=== PATIENT | male | born 1985 | race American Indian/Alaskan Native ===

== ENCOUNTER 2022-03-14 18:00 | Emergency (ER) | payer BC ==
[2022-03-14 20:05] LABS: Basophils % (Auto) 0.3 % (0.0-1.8); Hematocrit 44.9 % (35.5-45.6); Hemoglobin 14.8 gm/dl (11.8-15.2); Lymphocytes # (Auto) 1.6 K/mm3 (1.2-5.4); Lymphocytes % (Auto) 23.2 % (13.4-35.0); Mean Corpuscular HGB Conc 33 % (32-34); Mean Corpuscular Volume 94 fl (84-94); Monocytes # (Auto) 0.6 K/mm3 (0.0-0.8); Monocytes % (Auto) 9.2 % (0.0-7.3); Platelet Count 148 K/mm3 (140-440); Red Cell Distribution Width 13.9 % (13.2-15.2)
[2022-03-14 20:23] LABS: Alanine Aminotransferase 13 units/L (7-56); Albumin 4.9 g/dL (3.9-5); BUN/Creatinine Ratio 14; Blood Urea Nitrogen 11 mg/dL (9-20); Calcium 9.9 mg/dL (8.4-10.2); Hemolysis Index 20
[2022-03-14 23:51] LABS: Color,Urine Yellow (Yellow)
[2022-03-14 23:53] LABS: Mucus,Urine 3+ /HPF
--- NOTE | 2022-03-15 00:02 | Emergency Department Report ---
ED General Adult HPI - General Chief complaint: Nausea/Vomiting/Diarrhea Stated complaint: CANT KEEP ANYTHING DOWN Time Seen by Provider: 03/14/22 23:49 Source: patient, RN notes reviewed Mode of arrival: Ambulatory Limitations: No Limitations - History of Present Illness Initial comments: The patient was evaluated in the emergency department for symptoms described in the history of present illness. He/she was evaluated in the context of the global COVID-19 pandemic, which necessitated consideration that the patient might be at risk for infection with the virus that causes COVID-19. Institutional protocols and algorithms that pertain to the evaluation of patients at risk for COVID-19 are in a state of rapid change based on information released by regulatory bodies including the CDC and federal and state organizations. These policies and algorithms were followed during the patient's care in the emergency department. Please note that these policies, procedures and recommendations changed on a rapid basis. This patient is a pleasant and cooperative 36-year-old gentleman who presents to the department today with complaints of resolved painless nausea and vomiting. The patient went out last night, and drank a number of fireball whiskey shots. He also smokes cigarettes. He does not smoke marijuana. His symptoms are now resolved. He denies all active complaints at this time. He does not have testicular pain, or urinary symptoms. He is currently drinking apple juice. -: Sudden Severity scale (0 -10): 8 Consistency: now resolved Improves with: none Worsens with: none Associated Symptoms: denies other symptoms - Related Data Previous Rx's Medication Instructions Recorded Last Taken Type Ondansetron [Zofran Odt] 4 mg PO Q8HR PRN #20 tab.rapdis 03/15/22 Unknown Rx Allergies Allergy/AdvReac Type Severity Reaction Status Date / Time No Known Allergies Allergy Unverified 03/14/22 19:09 ED Review of Systems ROS: Stated complaint: CANT KEEP ANYTHING DOWN Other details as noted in HPI Comment: All other systems reviewed and negative Gastrointestinal: nausea, vomiting. denies: abdominal pain Genitourinary: denies: urgency, dysuria, frequency, testicular pain, testicular mass ED Past Medical Hx - Past Medical History Previous Medical History?: No - Surgical History Past Surgical History?: No - Medications Home Medications: Home Medications Medication Instructions Recorded Confirmed Last Taken Type Ondansetron [Zofran Odt] 4 mg PO Q8HR PRN #20 tab.rapdis 03/15/22 Unknown Rx ED Physical Exam - General Limitations: No Limitations General appearance: alert, in no apparent distress - Head Head exam: Present: atraumatic, normocephalic - Eye Eye exam: Present: normal appearance, EOMI. Absent: nystagmus - ENT ENT exam: Present: normal exam, normal orophraynx, mucous membranes moist, normal external ear exam - Neck Neck exam: Present: normal inspection, full ROM. Absent: tenderness, meningismus - Respiratory Respiratory exam: Present: normal lung sounds bilaterally. Absent: respiratory distress, wheezes, rales, rhonchi, stridor, decreased breath sounds - Cardiovascular Cardiovascular Exam: Present: regular rate, normal rhythm, normal heart sounds. Absent: bradycardia, tachycardia, irregular rhythm, systolic murmur, diastolic murmur, rubs, gallop - GI/Abdominal GI/Abdominal exam: Present: soft, normal bowel sounds. Absent: distended, tenderness, guarding, rebound, rigid, pulsatile mass - Rectal Rectal exam: Present: deferred - Extremities Exam Extremities exam: Present: normal inspection, full ROM, other (2+ pulses noted in the bilateral upper and lower extremities. There is no palpable cord. negative Homans sign. Muscular compartments are soft. The pelvis is stable.). Absent: pedal edema, calf tenderness - Back Exam Back exam: Present: normal inspection, full ROM. Absent: tenderness, CVA te nderness (R), CVA tenderness (L), paraspinal tenderness, vertebral tenderness - Neurological Exam Neurological exam: Present: alert, oriented X3, normal gait, other (No facial droop. Tongue midline. Extraocular movements intact bilaterally. Facial sensation intact to light touch in V1, V2, V3 distribution bilaterally. 5 and a 5 strength in 4 extremities. Sensation intact to light touch in 4 extremities.). Absent: motor sensory deficit - Psychiatric Psychiatric exam: Present: normal affect, normal mood - Skin Skin exam: Present: warm, dry, intact, normal color. Absent: rash ED Course Vital Signs 03/14/22 18:56 Temperature 98.7 F Pulse Rate 66 Respiratory 18 Rate Blood Pressure 109/62 [Left] O2 Sat by Pulse 100 Oximetry ED Medical Decision Making - Lab Data Result diagrams: 03/14/22 19:45 03/14/22 19:45 Vital Signs 03/14/22 18:56 Temperature 98.7 F Pulse Rate 66 Respiratory 18 Rate Blood Pressure 109/62 [Left] O2 Sat by Pulse 100 Oximetry Lab Results 03/14/22 03/14/22 03/14/22 Range/Units 19:45 19:45 23:43 WBC 6.7 (4.5-11.0) K/mm3 RBC 4.80 (3.65-5.03) M/mm3 Hgb 14.8 (11.8-15.2) gm/dl Hct 44.9 (35.5-45.6) % MCV 94 (84-94) fl MCH 31 (28-32) pg MCHC 33 (32-34) % RDW 13.9 (13.2-15.2) % Plt Count 148 (140-440) K/mm3 Lymph % (Auto) 23.2 (13.4-35.0) % [place] % (Auto) 9.2 H (0.0-7.3) % Eos % (Auto) 0.0 (0.0-4.3) % Baso % (Auto) 0.3 (0.0-1.8) % Lymph # (Auto) 1.6 (1.2-5.4) K/mm3 [place] # (Auto) 0.6 (0.0-0.8) K/mm3 Eos # (Auto) 0.0 (0.0-0.4) K/mm3 Baso # (Auto) 0.0 (0.0-0.1) K/mm3 Seg Neutrophils % 67.3 (40.0-70.0) % Seg Neutrophils # 4.5 (1.8-7.7) K/mm3 Sodium 140 (137-145) mmol/L Potassium 4.2 (3.6-5.0) mmol/L Chloride 103.3 (98-107) mmol/L Carbon Dioxide 26 (22-30) mmol/L Anion Gap 15 mmol/L BUN 11 (9-20) mg/dL Creatinine 0.8 (0.8-1.3) mg/dL Estimated GFR > 60 ml/min BUN/Creatinine Ratio 14 % Glucose 130 H (75-100) mg/dL Calcium 9.9 (8.4-10.2) mg/dL Total Bilirubin 0.30 (0.1-1.2) mg/dL AST 15 (5-40) units/L ALT 13 (7-56) units/L Alkaline Phosphatase 60 (35-129) units/L Total Protein 7.1 (6.3-8.2) g/dL Albumin 4.9 (3.9-5) g/dL Albumin/Globulin Ratio 2.2 % Urine Color Yellow (Yellow) Urine Turbidity Clear (Clear) Specific [place] (Man) 1.030 (1.003-1.030) Ur Protein (Man) 1+ (Negative) mg/dL Ur Ketones (Man) 5mg/dl (Negative) Ur Nitrite (Man) Negative (Negative) Urine Bilirubin (Man) Negative (Negative) Leukocyte Esterase (Man) Negative (Negative) Urine RBC (Manual) Negative (Negative) - Medical Decision Making Differential diagnosis, including but not limited to: Alcohol gastritis, hangover, tobacco gastritis, Assessment and plan: 36-year-old gentleman, status post alcohol consumption last night, with resolved nausea and vomiting. He is drinking orange juice in the examination room. Abdomen soft and benign, without rebound, guarding or per itoneal signs. Patient endorses readiness for discharge, and he appears well. We discussed moderation. Return precautions are reviewed. All questions answered. Critical care attestation.: If time is entered above; I have spent that time in minutes in the direct care of this critically ill patient, excluding procedure time. ED Disposition Clinical Impression: History of nausea and vomiting Disposition: 01 HOME / SELF CARE / HOMELESS Is pt being admited?: No Does the pt Need Aspirin: No Condition: Good Instructions: Nausea and Vomiting, Adult Additional Instructions: Avoid consumption of Motrin, ibuprofen, Naprosyn, Aleve, heavy and spicy foods. May consume bland foods, such as bread, rice, apple, toast, Avoid consumption of alcohol, tobacco, smoke products and recreational drugs. Please return to the emergency room right away with new pain, worsened pain, m igration of pain, projectile vomiting, change in mental status, confusion, inability tolerate liquid feeds, new, worsened or different symptoms not present on the initial emergency room evaluation Please return to the emergency room right away with new pain, worsened pain, migration of pain, projectile vomiting, change in mental status, confusion, inability tolerate liquid feeds, new, worsened or different symptoms not present on the initial emergency room evaluation May take [id number] Tylenol, Pepcid, Protonix or famotidine as needed for physical pain. May take the nausea medication as needed and directed Referrals: [facility] [Provider Group] - 7-10 days Forms: Work/School Release Form(ED)
[2022-03-15 00:10] VITALS: BP 119/63
[2022-03-15 00:10] LABS: RBC,Urine < 1.0 /HPF (0.0-6.0); WBC,Urine < 1.0 /HPF (0.0-6.0)
== END 2022-03-15 00:30 | disposition home or self-care (01) ==
LOC: ED 18:00
DX: R11.2 Nausea with vomiting, unspecified (principal)
CPT/HCPCS: 36415; 80053; 81001; 85025; 99283